=== PATIENT | male | born 1945 | race African-American/Black ===

== ENCOUNTER 2017-03-31 13:56 | Emergency (ER) | payer MEDICARE, MEDICAID ==
[~2017-03-31] VITALS: Ht 182.9 cm; Wt 104.3 kg
[~2017-03-31 13:56] MED LIST: ALBUTEROL SULF8.5 GM INH; LOSARTAN POTASS50 MG ORAL; PREDNISONE10 MG ORAL; PROMETHAZINE-C118 M1 ORAL; TAMIFLU75 MG ORAL
[2017-03-31 14:15] VITALS: BP 149/90
--- NOTE | 2017-03-31 14:20 | Emergency Room Report ---
History of Present Illness General Chief Complaint: Generalized Weakness Source: Patient Present Illness HPI The patient presents with a complaint of chest pressure. Been intermittent for the last 2 days. It's worse when he takes a deep breath. He denies any cough or fevers or chills. On Saturday he started and blood pressure medication and had a reaction to it. He became pale and felt that he was going to pass out. Doesn't take any medicine since that time. The patient has pyuria and frequency. Has a large prostate. There's no dysuria. He denies diabetes. The patient has chronic pain from his knees. He's had knee replacement bilaterally. There's no significant swelling in his lower extremities. He occasionally takes Advil for that. The patient complains of some nausea without vomiting. He also had some diarrhea. 2 days ago his stools were black and now they've cleared up and around. He did not taking Pepto-Bismol. He's never had ulcers or bleeding problems his gastrointestinal tract. The patient denies any rashes, headache. There is no residual dizziness after the episode with the nuclear pressure medicine. Allergies: Coded Allergies: No Known Allergies (Unverified , 08/30/15) Patient History Past Medical History: see triage record Social History: Denies: smoking Social History Narrative Reviewed Nursing Documentation: PMH: Agreed, PSxH: Agreed Nursing Documentation-PMH Hx Hypertension: Yes Hx Cerebrovascular Accident: No - KNEE SURGERY Physical Exam Vital Signs Date Time Temp Pulse Resp B/P (MAP) Pulse Ox O2 Delivery O2 Flow Rate FiO2 03/31/17 14:05 99.9 98 20 130/84 96 Room Air Sp02 EP Interpretation: reviewed, normal General Appearance: well appearing, no apparent distress, GCS 15 Head: normocephalic Eyes: bilateral eye normal inspection, bilateral eye PERRL ENT: moist mucus membranes Neck: supple Respiratory: lungs clear, normal breath sounds Cardiovascular #1: regular rate, rhythm Cardiovascular #2: 2+ radial (R) Gastrointestinal: normal inspection, normal bowel sounds, non tender, no mass, non-distended Musculoskeletal: back normal, gait/station normal, normal range of motion, other - scarrs bilat knees Neurologic: alert, oriented x3, grossly normal Psychiatric: mood/affect normal - concerned Skin: normal inspection, warm/dry Procedures Critical Care Time Critical Care Time Total Critical Care Time: 90 min bedside evaluation and treatment excludes procedures (EKG). Reason for critical care: NSTEMI Possible complications: hypotension, hypertension, myocardial injury, shock, arrhythmias, metabolic acidosis, end organ damage. Interventions: aspirin, metoprolol, heparin, plavix, ativan, cardiology consultation and emergent transfer. Course: Patient initially presented with dyspnea and chest pressure an event Saturday reacting to taking BP med. An EKG was immediately ordered and was normal. Patient treated with aspirin. Troponin called. Immediate treatement with metoprolol and ativan. Discussions with family. Contact admitting MD for break and load operator. Discussed with break and load operator who requests transfer to [facility] to biological lab technician. Discussion of heparin (also with pharmacy). His HR improved and his pressure resolved. He was accepted by [facility] after several discussions discussion with the transfer center. He was transferred emergently by PRN with RN in attendance. Evaluated by break and load operator and admitting MD in ED. Greatly improved prior to transfer. Consultations: nursing staff, admitting MD, transfer center, pharmacy, break and load operator Performed by: Dr. Siddiqi Tolerated well condition = critical Medical Decision Making Diagnostic Impression: Primary Impression: NSTEMI (non-ST elevated myocardial infarction) Additional Impression: Hyponatremia ER Course The patient presents with chest pressure after starting a blood pressure medication. He also has a low-grade temperature with frequency and polyuria. Differential is broad. Considerations are acute myocardial infarction, congestive heart failure, bronchitis, urinary tract infection, reaction to new medication amongst others. His exam is against pulmonary embolus at this time. Evaluation will be with EKG, chest x-ray and labs. The patient will be treated with aspirin at this time. EKG shows no injury or strain. Sinus tachycardia with a rate of 100. Chest x- ray shows some cardiomegaly and some increased vascular marking which is minimal. Labs initially revealed low sodium some elevated liver function tests. Urinalysis was negative. Lab causes for the positive troponin of 19. An EKG was repeated. This showed sinus rhythm with PACs and still no acute injury. With the positive troponin the consideration was that he had an UT when he felt so ill on Saturday. The patient had received aspirin and was initially evaluated by. In addition to that he received a dose of metoprolol. HR improved with metoprolol. Discussed with Dr. Subramanian who wants patient to be transferred. Contacted [facility] @ 16:48. Heparin begun. Dr. Subramanian here. Requests plavix (given). Discussed with transfer team. Patient transferred improved condition. Laboratory Tests Test 03/31/17 14:20 03/31/17 14:30 Urine Color Pale yellow Urine Appearance Clear Urine pH 6 (4.5-8.0) Urine Specific [place] 1.010 (1.005-1.035) Urine Protein Negative (NEGATIVE) Urine Glucose (UA) Negative (NEGATIVE) Urine Ketones Negative (NEGATIVE) Urine Occult Blood 1+ (NEGATIVE) H Urine Nitrite Negative (NEGATIVE) Urine Bilirubin Negative (NEGATIVE) Urine Urobilinogen Normal MG/DL (0.0-1.0) Urine Leukocyte Esterase Negative (NEGATIVE) Urine RBC 2-4 /HPF (0 - 0) H Urine WBC 0-2 /HPF (0 - 0) Urine Squamous Epithelial Cells Occasional /LPF Urine Bacteria Occasional /HPF (NONE) White Blood Count 11.6 K/UL (4.8-10.8) H Red Blood Count 4.71 M/UL (4.70-6.10) Hemoglobin 14.9 G/DL (14.2-18.0) Hematocrit 43.9 % (42.0-52.0) Mean Corpuscular Volume 93 FL (80-99) Mean Corpuscular Hemoglobin 31.6 PG (27.0-31.0) H Mean Corpuscular Hemoglobin Concent 34.0 G/DL (32.0-36.0) Red Cell Distribution Width 10.9 % (11.6-14.8) L Platelet Count 111 K/UL (150-450) L Mean Platelet Volume 8.7 FL (6.5-10.1) Neutrophils (%) (Auto) 77.3 % (45.0-75.0) H Lymphocytes (%) (Auto) 11.9 % (20.0-45.0) L Monocytes (%) (Auto) 9.9 % (1.0-10.0) Eosinophils (%) (Auto) 0.3 % (0.0-3.0) Basophils (%) (Auto) 0.7 % (0.0-2.0) Prothrombin Time 11.4 SEC (9.30-11.50) Prothrombin Time INR 1.1 (0.9-1.1) PTT 26 SEC (23-33) Sodium Level 128 MMOL/L (136-145) L Potassium Level 3.6 MMOL/L (3.5-5.1) Chloride Level 96 MMOL/L (98-107) L Carbon Dioxide Level 23 MMOL/L (21-32) Anion Gap 9 (5-15) Blood Urea Nitrogen 16 mg/dL (7-18) Creatinine 0.9 MG/DL (0.55-1.00) Estimate Glomerular Filtration Rate > 60 mL/min (>60) Glucose Level 107 MG/DL (74-106) H Calcium Level 9.4 MG/DL (8.5-10.1) Total Bilirubin 1.8 MG/DL (0.2-1.0) H Direct Bilirubin 0.5 MG/DL (0.0-0.3) H Aspartate Amino Transferase (AST) 199 U/L (15-37) H Alanine Aminotransferase (ALT) 37 U/L (12-78) Alkaline Phosphatase 53 U/L (46-116) Total Creatine Kinase 636 U/L (26-308) H Troponin I 19.517 ng/mL (0.000-0.056) Pro-B-Type Natriuretic Peptide 1622 (0-125) H Total Protein 7.6 G/DL (6.4-8.2) Albumin 3.6 G/DL (3.4-5.0) Globulin 4.0 g/dL Albumin/Globulin Ratio 0.9 (1.0-2.7) L EKG Diagnostic Results Rate: tachycardiac ST Segments: no acute changes Rhythm Strip Diag. Results EP Interpretation: yes Rhythm: no PVC's, no ectopy, other - ST 100 Chest X-Ray Diagnostic Results Chest X-Ray Diagnostic Results : Chest X-Ray Ordered: Yes # of Views/Limited/Complete: 1 View Indication: Chest Pain EP Interpretation: Yes Interpretation: no consolidation, no effusion, no pneumothorax, no acute cardiopulmonary disease Impression: Other Electronically Signed by: Electronically signed by Omar Siddiqi MD Last Vital Signs Date Time Temp Pulse Resp B/P (MAP) Pulse Ox O2 Delivery O2 Flow Rate FiO2 03/31/17 19:00 99.1 88 29 118/69 100 Room Air Status: improved Disposition: XFER SHT-TRM HOSP Condition: Critical - higher level of care, stable for transfer Omar Siddiqi M.D. Mar 31, 2017 14:20
[2017-03-31 14:48] LABS: BASOPHILS % (AUTO) 0.7 % (0.0-2.0); EOSINOPHILS % (AUTO) 0.3 % (0.0-3.0); LYMPHOCYTES % (AUTO) 11.9 % (20.0-45.0); MEAN CORPUSCULAR HEMOGLOBIN 31.6 PG (27.0-31.0); MEAN CORPUSCULAR VOLUME 93 FL (80-99); MEAN PLATELET VOLUME 8.7 FL (6.5-10.1); MONOCYTES % (AUTO) 9.9 % (1.0-10.0); NEUTROPHILS % (AUTO) 77.3 % (45.0-75.0); PLATELET COUNT 111 K/UL (150-450); RED BLOOD COUNT 4.71 M/UL (4.70-6.10); RED CELL DISTRIBUTION WIDTH 10.9 % (11.6-14.8); WHITE BLOOD COUNT 11.6 K/UL (4.8-10.8)
[2017-03-31 14:51] LABS: APPEARANCE,URINE CLEAR; KETONES,URINE NEGATIVE (NEGATIVE); LEUKOCYTE ESTERASE ,URINE NEGATIVE (NEGATIVE); NITRITE,URINE NEGATIVE (NEGATIVE); PH,URINE 6 (4.5-8.0); PROTEIN,URINE NEGATIVE (NEGATIVE); UROBILINOGEN,URINE NORMAL MG/DL (0.0-1.0)
[2017-03-31 14:58] LABS: INR 1.1 (0.9-1.1); PROTHROMBIN TIME 11.4 SEC (9.30-11.50)
[2017-03-31 15:02] LABS: ALANINE AMINOTRANSFERASE 37 U/L (12-78); ALBUMIN/GLOBULIN RATIO 0.9 (1.0-2.7); ANION GAP 9 (5-15); ASPARTATE AMINO TRANSFERASE 199 U/L (15-37); CALCIUM 9.4 MG/DL (8.5-10.1); CARBON DIOXIDE 23 MMOL/L (21-32); CHLORIDE 96 MMOL/L (98-107); CREATININE 0.9 MG/DL (0.55-1.00); GLOMERULAR FILTRATION RATE > 60 mL/min (>60); POTASSIUM 3.6 MMOL/L (3.5-5.1); SODIUM 128 MMOL/L (136-145); TOTAL PROTEIN 7.6 G/DL (6.4-8.2)
[2017-03-31 15:02] LABS: BACTERIA,URINE OCCASIONAL /HPF; SQUAMOUS EPITHELIAL CELL,UR OCCASIONAL /LPF (NONE/OCC); WBC,URINE 0-2 /HPF (0 - 0)
[2017-03-31 15:30] VITALS: BP 138/81
[2017-03-31] MEDS ORDERED: Metoprolol 5mg/5ml Inj IVP STA (15:40)
[2017-03-31] MEDS ORDERED: LORazepam 20 MG in NS 90 ML IV STA (15:40)
[2017-03-31 15:47] LABS: BILIRUBIN,DIRECT 0.5 MG/DL (0.0-0.3)
[2017-03-31 16:30] VITALS: BP 123/78
[2017-03-31] MEDS ORDERED: Heparin 5000 units/ml inj IV ONE (17:00)
[2017-03-31] MEDS ORDERED: Heparin 25,000u/D5W 500ml 500 ML IV SCH ×2 (17:00→17:45)
[2017-03-31] MEDS ORDERED: LORazepam Inj 2mg/ml 1ml IV ONE (17:00)
[2017-03-31 17:30] VITALS: BP 136/7
--- NOTE | 2017-03-31 18:29 | Cardiology Progress Note ---
Assessment/Plan Assessment/Plan nstemi htn recent symtomatic hypotesnion hs of pud years ago bph heparin dual anit plat high dose statin [facility] [place] [facility] [id number] Objective Last 24 Hour Vital Signs Date Time Temp Pulse Resp B/P (MAP) Pulse Ox O2 Delivery O2 Flow Rate FiO2 03/31/17 17:30 82 29 136/7 99 Room Air 03/31/17 16:30 74 27 123/78 97 Room Air 03/31/17 15:49 87 138/81 03/31/17 15:30 86 27 138/81 96 Room Air 03/31/17 14:15 102 22 Room Air 03/31/17 14:15 99.1 102 22 149/90 99 Room Air 03/31/17 14:05 99.9 98 20 130/84 96 Room Air Laboratory Tests Test 03/31/17 14:20 03/31/17 14:30 Urine Color Pale yellow Urine Appearance Clear Urine pH 6 (4.5-8.0) Urine Specific [place] 1.010 (1.005-1.035) Urine Protein Negative (NEGATIVE) Urine Glucose (UA) Negative (NEGATIVE) Urine Ketones Negative (NEGATIVE) Urine Occult Blood 1+ (NEGATIVE) H Urine Nitrite Negative (NEGATIVE) Urine Bilirubin Negative (NEGATIVE) Urine Urobilinogen Normal MG/DL (0.0-1.0) Urine Leukocyte Esterase Negative (NEGATIVE) Urine RBC 2-4 /HPF (0 - 0) H Urine WBC 0-2 /HPF (0 - 0) Urine Squamous Epithelial Cells Occasional /LPF Urine Bacteria Occasional /HPF (NONE) Urine Random Sodium < 50 MEQ/L (20-110) White Blood Count 11.6 K/UL (4.8-10.8) H Red Blood Count 4.71 M/UL (4.70-6.10) Hemoglobin 14.9 G/DL (14.2-18.0) Hematocrit 43.9 % (42.0-52.0) Mean Corpuscular Volume 93 FL (80-99) Mean Corpuscular Hemoglobin 31.6 PG (27.0-31.0) H Mean Corpuscular Hemoglobin Concent 34.0 G/DL (32.0-36.0) Red Cell Distribution Width 10.9 % (11.6-14.8) L Platelet Count 111 K/UL (150-450) L Mean Platelet Volume 8.7 FL (6.5-10.1) Neutrophils (%) (Auto) 77.3 % (45.0-75.0) H Lymphocytes (%) (Auto) 11.9 % (20.0-45.0) L Monocytes (%) (Auto) 9.9 % (1.0-10.0) Eosinophils (%) (Auto) 0.3 % (0.0-3.0) Basophils (%) (Auto) 0.7 % (0.0-2.0) Prothrombin Time 11.4 SEC (9.30-11.50) Prothromb Time International Ratio 1.1 (0.9-1.1) Activated Partial Thromboplast Time 26 SEC (23-33) Sodium Level 128 MMOL/L (136-145) L Potassium Level 3.6 MMOL/L (3.5-5.1) Chloride Level 96 MMOL/L (98-107) L Carbon Dioxide Level 23 MMOL/L (21-32) Anion Gap 9 (5-15) Blood Urea Nitrogen 16 mg/dL (7-18) Creatinine 0.9 MG/DL (0.55-1.00) Estimat Glomerular Filtration Rate > 60 mL/min (>60) Glucose Level 107 MG/DL (74-106) H Calcium Level 9.4 MG/DL (8.5-10.1) Total Bilirubin 1.8 MG/DL (0.2-1.0) H Direct Bilirubin 0.5 MG/DL (0.0-0.3) H Aspartate Amino Transf (AST/SGOT) 199 U/L (15-37) H Alanine Aminotransferase (ALT/SGPT) 37 U/L (12-78) Alkaline Phosphatase 53 U/L (46-116) Total Creatine Kinase 636 U/L (26-308) H Troponin I 19.517 ng/mL (0.000-0.056) Pro-B-Type Natriuretic Peptide 1622 (0-125) H Total Protein 7.6 G/DL (6.4-8.2) Albumin 3.6 G/DL (3.4-5.0) Globulin 4.0 g/dL Albumin/Globulin Ratio 0.9 (1.0-2.7) L NADIYA BOYD Mar 31, 2017 18:29
[2017-03-31 18:30] VITALS: BP 118/69
[2017-03-31 19:00] VITALS: BP 118/69
--- NOTE | 2017-03-31 19:46 | History & Physical ---
History and Physical History & Physicial H&P dictated [id number] KT DUARTE M.D. Mar 31, 2017 19:46
--- NOTE | 2017-04-01 06:15 | History and Physical Report ---
DATE OF ADMISSION: 03/31/2017 CHIEF COMPLAINT: Shortness of breath and chest pain. HISTORY OF PRESENT ILLNESS: This is a 71-year-old male who presents to emergency room with substernal chest pressure that started Saturday along with shortness of breath. He states that he has pleuritic chest pain and tightness. He first noticed shortness of breath on Saturday and chest pain started on Saturday. He has a history of hypertension. He denies having any history of heart attacks. He also has a history of BPH. He denies any nausea or vomiting. He denies the pain radiating to his neck or shoulders. PAST MEDICAL HISTORY: Hypertension and BPH. PAST SURGICAL HISTORY: The patient had knee surgery. MEDICATIONS: Reviewed in [employer]. ALLERGIES: No known drug allergies. SOCIAL HISTORY: Does not smoke. Does not drink alcohol. Does not use any drugs. FAMILY HISTORY: Noncontributory. REVIEW OF SYSTEMS: A 12-point review of systems is negative except for pertinent positives as mentioned above. PHYSICAL EXAMINATION: VITAL SIGNS: Temperature is 99.9 degrees, pulse is 98, respiratory rate is 20, blood pressure 130/84, and O2 saturation is 96% on room air. GENERAL: He is in no acute distress. The patient is alert, awake, and oriented x3. HEENT: Normocephalic/atraumatic. NECK: Supple. No JVD. LUNGS: Clear to auscultation bilaterally. No crackles, rhonchi, or rales. CARDIOVASCULAR: Regular rate and rhythm. Normal S1 and S2. ABDOMEN: Soft, nontender, and nondistended. EXTREMITIES: No clubbing, cyanosis, or edema. LABORATORY AND DIAGNOSTIC DATA: EKG shows T-wave inversion in the lateral leads and sinus tachycardia. Chest x-ray is not revealing. Troponin is 19. Labs, CBC white count 11.6, hemoglobin 14.9, and platelet count of 111,000. BMP, sodium 128, potassium 3.6, chloride 96, CO2 23, BUN 16, and creatinine 0.9. ASSESSMENT: 1. Non-ST elevation myocardial infarction. 2. Hypertension. 3. Hyponatremia, likely secondary to diuretic. 4. Benign prostatic hypertrophy. PLAN: 1. The patient should be transferred to [facility] for left heart catheterization. 2. Start the patient on heparin. 3. Aspirin and Plavix. 4. Statin. 5. Cardiology consult with Dr. Subramanian. 6. Upon arrival to [facility], the patient will need a left heart catheterization with Dr. Bryant. The patient is stable for transfer. Omar Montes De Oca MD DR: Marylou JOB#: [id number] CC:
--- NOTE | 2017-04-01 09:03 | Consultation ---
DATE OF CONSULTATION: CRITICAL CARE CARDIOLOGY NOTE CONSULTING PHYSICIAN: Froylan Subramanian M.D. REFERRING PHYSICIAN: Dr. Omar Siddiqi and Dr. Montes De Oca. REASON FOR REFERRAL: Chest pain. [id number] myocardiac infarction. HISTORY OF PRESENT ILLNESS: This is a 71-year-old gentleman with history of hypertension, recently blood pressure under control, saw his primary black off worker, who took him off of Cozaar and placed him on Edarbi. Subsequently about an hour after he took it, he became very dizzy, lightheaded, and pale and was very weak. Over the past two to three days, he has had similar situation, there has been generalized weakness. He has not been able to eat anything, does not have any appetite. Today, he developed some tightness in the chest in the morning. He finally presented because of symptoms to the emergency room at [facility]. The troponin that was drawn was 19. I was notified and I requested the emergency room physician to initiate transfers protocol to transfer the patient to [facility] for cardiac catheterization. On my arrival, the patient appears to be chest pain free at the moment. This information is obtained from the patient. He has had some dyspnea on exertion, although that does not appear to be new, he has had that for some time, but his does indicate that last night he got up because of some shortness of breath at least a couple of times. He uses one pillow. He has had dizziness and lightheadedness as mentioned above over the past ensuing days and his blood pressure as well as below the 90s he says. He is not allergic to any medications. PAST MEDICAL HISTORY: Positive for high blood pressure. He does not have any heart attack. No cancer. No stroke. No hepatitis or tuberculosis. No asthma or emphysema. He does have a history of peptic ulcer disease. No kidney problems, liver problems, thyroid problems, anemia or arthritis. He does have history of enlarged prostate. No deep venous thrombosis. No coronary or vascular disease has been notified. SOCIAL HISTORY: He quit smoking in age 30s. He does not drink alcoholic beverages at the present time. No drugs. REVIEW OF SYSTEMS: GASTROINTESTINAL: He has had some diarrhea. No bloody or black stools. GENITOURINARY: Negative. PULMONARY: Negative. CONSTITUTIONAL: Negative. NEUROLOGIC: Over the past few days, he has had some numbness and tingling sensation in his fingertips, which were feeling cold. PHYSICAL EXAMINATION: VITAL SIGNS: Blood pressure is anywhere between 122/78 to 149/90, his heart rate is in the 70s to 98 range. LABORATORY VALUES: White count 11.6, hemoglobin 14.9 and platelet count of 111,000. Sodium is 128, potassium 3.6, chloride 96, bicarbonate 23, BUN of 16, creatinine 0.9. Glucose of 107. Total bilirubin of 1.8. AST 199 and ALT of 37. His alkaline phosphate is 53. CK is 636, troponin is 19.5, and proBNP of 1600. Albumin of 3.6. Coagulation studies, INR was 1.1, PTT of 26. Urinalysis shows 2 to 4 RBCs, 0 to 2 WBCs. His urine sodium is less than 50. Chest x-ray has been performed in the emergency room. Chest x-ray appears to be relatively clear. It is of note that the patient had CT angiogram of his lungs last year in 2016. No central pulmonary artery embolism was noted. Multiple cystic lesions within the lungs were noted at that time bilaterally, very thin are likely pneumatoceles, which are usually post inflammatory. His EKG shows initially sinus tachycardia at a rate of 100 and had some biphasic and T-wave inversions in 2 to 3 aVF as well as V5 and V6. Subsequent EKG shows resolution of T-wave inversion 2, 3, and aVF, however, biphasic T-waves or T-wave inversions in V5 and V6 still present. ASSESSMENT: 1. [id number] myocardial infarction. Possibilities include right coronary artery and/or circumflex lesion. 2. Hypertension. 3. Recent hypotension, post change in medications. The patient has been started on antiplatelet agents and anticoagulation. Beta-blockers have been administered by the emergency room physician and requires statins. The dual-antiplatelet agents except for Plavix should be initiated. The patient has been in contact with Dr. Montes De Oca and I have talked with the transfer center at [facility] in addition to the emergency physician, Dr. Siddiqi, here in the emergency room and we were in the process of obtaining bed for the patient to be transferred to [facility]. At the moment, he appears to be pain-free. His blood pressure appears to be adequate. I discussed the case with the patient himself and the noted for cardiac catheterization has been provided. I did discuss with the patient in light of the fact that he has such high elevation of his troponin, the may have initiated at that time although he had some chest pains, arthropathy today as well. Serial troponins will be followed. The patient will require an echocardiogram as well in the future. Duration of this critical care note is 55 minutes. Froylan Subramanian M.D. DR: PATRICE JOB#: [id number] CC:
--- NOTE | 2017-04-01 12:31 | Diagnostic Imaging Report ---
Indication: Chest pain Comparison: 08/30/15 A single view chest radiograph was obtained. Findings: No definite infiltrate or pulmonary vascular congestion identified. The heart is enlarged. The aorta is mildly enlarged consistent with atherosclerotic vascular disease. The bones are osteopenic. Impression: No acute disease
--- NOTE | 2017-04-02 08:10 | Cardiology Report ---
APPROVED REPORT EKG Measurement Heart [id number] Sinus rhythm with premature atrial complexes Possible Left atrial enlargement Nonspecific ST and T wave abnormality Abnormal ECG
--- NOTE | 2017-04-02 08:10 | Cardiology Report ---
APPROVED REPORT EKG Measurement Heart [id number] Normal sinus rhythm Possible Left atrial enlargement Possible Inferior infarct, age undetermined Abnormal ECG
== END 2017-03-31 19:00 | disposition short-term general hospital (02) ==
LOC: EMR 14:35 → ICU 16:00 → UNDOADMIN 16:00 → EDBEDREQSVC 16:03 → EDBEDREQ 16:03 → EMR 19:00
DX: I21.4 Non-ST elevation (NSTEMI) myocardial infarction (principal); E87.1 Hypo-osmolality and hyponatremia; R06.02 Shortness of breath; R07.1 Chest pain on breathing; I10 Essential (primary) hypertension; N40.0 Benign prostatic hyperplasia without lower urinary tract symptoms; R53.1 Weakness; R35.0 Frequency of micturition; R35.8 Other polyuria
CPT/HCPCS: 36415; 71010; 80053; 81003; 82248; 82550; 83880; 84300; 84484; 85025; 85610; 85730; 93005; 96361; 96365; 96375; 96376; 99291; 99292; J1644; 96360